=== PATIENT | female | born 1990 | race African-American/Black ===

== ENCOUNTER 2018-05-08 16:11 | Emergency (ER) | payer MEDICAID ==
[~2018-05-08] VITALS: Ht 162.6 cm; Wt 106.0 kg
[2018-05-08 18:20] LABS: CLARITY URINE CLEAR (CLEAR); COLOR URINE YELLOW (YELLOW); KETONES URINE NEGATIVE (NEGATIVE); LEUKOCYTE ESTERASE URINE NEGATIVE (NEGATIVE); NITRITE URINE NEGATIVE (NEGATIVE); OCCULT BLOOD URINE NEGATIVE (NEGATIVE); PROTEIN URINE NEGATIVE (NEGATIVE); SPECIFIC GRAVITY URINE 1.014 (1.005-1.030)
[2018-05-08 20:08] LABS: BASOPHILS % 0.7 % (0.0-2.0); EOSINOPHILS % 1.3 % (0.0-5.0); HEMOGLOBIN. 12.9 g/dL (12.0-16.0); LYMPHOCYTES % 38.8 % (20.0-50.0); MEAN CORPUSCULAR HEMOGLOBIN 28.4 pg (28.0-32.0); MEAN CORPUSCULAR VOLUME 83.6 fL (81.0-99.0); MEAN PLATELET VOLUME 9.2 fl (7.4-10.4); MONOCYTES % 5.6 % (2.0-8.0); NEUTROPHILS % 53.6 % (40.0-76.0); PLATELET 275 x1000/uL (130-400); RED BLOOD CELL COUNT 4.55 mill/uL (4.2-5.4); RED CELL DISTRIBUTION WIDTH 14.8 % (11.6-14.6)
[2018-05-08 20:13] LABS: CHLORIDE 103 mEq/L (98-107)
[2018-05-08 22:05] VITALS: BP 119/73
== END 2018-05-08 22:20 | disposition home or self-care (01) ==
LOC: ER 16:11
DX: O26.891 Other specified pregnancy related conditions, first trimester (principal); R10.13 Epigastric pain; F17.200 Nicotine dependence, unspecified, uncomplicated; Z3A.01 Less than 8 weeks gestation of pregnancy; Z91.011 Allergy to milk products
CPT/HCPCS: 36415; 76801; 80053; 81003; 81025; 83690; 85025; 99285

== ENCOUNTER 2018-05-12 14:01 | Emergency (ER) | payer MEDICAID ==
[~2018-05-12] VITALS: Ht 162.6 cm; Wt 100.0 kg
[2018-05-12 15:17] LABS: BASOPHILS % 1.5 % (0.0-2.0); EOSINOPHILS % 1.1 % (0.0-5.0); HEMATOCRIT. 37.9 % (36.0-48.0); HEMOGLOBIN. 12.9 g/dL (12.0-16.0); LYMPHOCYTES % 39.9 % (20.0-50.0); MEAN CORPUSCULAR HEMOGLOBIN 28.2 pg (28.0-32.0); MEAN CORPUSCULAR VOLUME 83.3 fL (81.0-99.0); NEUTROPHILS % 52.5 % (40.0-76.0); PLATELET 251 x1000/uL (130-400); RED BLOOD CELL COUNT 4.55 mill/uL (4.2-5.4); RED CELL DISTRIBUTION WIDTH 14.7 % (11.6-14.6)
[2018-05-12 15:24] LABS: CHLORIDE 104 mEq/L (98-107)
[2018-05-12 15:49] LABS: B-HCG QUANTITATIVE 9294 mIU/mL (<3)
[2018-05-12 16:44] LABS: CLARITY URINE CLEAR (CLEAR); COLOR URINE DARK YELLOW (YELLOW); KETONES URINE NEGATIVE (NEGATIVE); LEUKOCYTE ESTERASE URINE 1+ (NEGATIVE); NITRITE URINE NEGATIVE (NEGATIVE); OCCULT BLOOD URINE 2+ (NEGATIVE); PH URINE 5.5 (4.5-8.0); PROTEIN URINE NEGATIVE (NEGATIVE); SPECIFIC GRAVITY URINE 1.027 (1.005-1.030)
[2018-05-12 18:53] VITALS: BP 115/70
== END 2018-05-12 19:08 | disposition home or self-care (01) ==
LOC: ER 14:01 → CANBEDREQ 14:51 → ER 19:08
DX: O20.0 Threatened abortion (principal); O23.11 Infections of bladder in pregnancy, first trimester; Z3A.01 Less than 8 weeks gestation of pregnancy; Z87.891 Personal history of nicotine dependence
CPT/HCPCS: 36415; 76801; 80053; 81003; 81025; 84702; 85025; 86850; 86900; 99285

== ENCOUNTER 2018-05-27 14:43 | Emergency (ER) | payer MEDICAID ==
[~2018-05-27] VITALS: Ht 162.6 cm; Wt 113.0 kg
[2018-05-27 17:06] VITALS: BP 140/79
== END 2018-05-27 18:26 | disposition left against medical advice (07) ==
LOC: ER 16:11
DX: Z53.21 Procedure and treatment not carried out due to patient leaving prior to being seen by health care provider (principal)
CPT/HCPCS: Z7610 ×2

== ENCOUNTER 2022-10-21 14:08 | Emergency (ER) | payer MEDICAID ==
[~2022-10-21] VITALS: Ht 162.6 cm; Wt 149.0 kg
[2022-10-21 14:39] VITALS: BP 191/80
[2022-10-21 18:16] LABS: BASOPHILS % 0.7 % (0.0-2.0); EOSINOPHILS % 1.3 % (0.0-5.0); HEMATOCRIT. 41.8 % (36.0-48.0); LYMPHOCYTES % 38.5 % (20.0-50.0); MEAN CORPUSCULAR HEMOGLOBIN 28.5 pg (28.0-32.0); MEAN CORPUSCULAR VOLUME 84.7 fL (81.0-99.0); MEAN PLATELET VOLUME 8.9 fl (7.4-10.4); NEUTROPHILS % 53.5 % (40.0-76.0); PLATELET 277 x1000/uL (130-400); RED BLOOD CELL COUNT 4.93 mill/uL (4.2-5.4); RED CELL DISTRIBUTION WIDTH 14.2 % (11.6-14.6)
[2022-10-21 18:27] LABS: INR 1.1; PROTHROMBIN TIME 11.8 sec (9.6-11.0)
[2022-10-21 18:28] LABS: CHLORIDE 104 mEq/L (98-107)
[2022-10-21 18:52] LABS: B-HCG QUANTITATIVE 53795 mIU/mL (<3)
[2022-10-21 20:26] LABS: CLARITY URINE CLOUDY (CLEAR); COLOR URINE DARK YELLOW (YELLOW); KETONES URINE TRACE (NEGATIVE); LEUKOCYTE ESTERASE URINE TRACE (NEGATIVE); NITRITE URINE NEGATIVE (NEGATIVE); OCCULT BLOOD URINE 3+ (NEGATIVE); PROTEIN URINE 1+ (NEGATIVE); SPECIFIC GRAVITY URINE 1.037 (1.005-1.030)
[2022-10-21] MEDS ORDERED: CEPH500C2 MT (21:07)
== END 2022-10-21 21:23 | disposition home or self-care (01) ==
LOC: ER 14:08
DX: O26.891 Other specified pregnancy related conditions, first trimester (principal); O20.0 Threatened abortion; O23.41 Unspecified infection of urinary tract in pregnancy, first trimester; N39.0 Urinary tract infection, site not specified; Z3A.10 10 weeks gestation of pregnancy
CPT/HCPCS: 36415; 76801; 80053; 81003; 81025; 84702; 85025; 86850; 86900; 99284

== ENCOUNTER 2023-05-12 16:10 | Inpatient (IN) | payer MEDICAID, OTHER ==
[~2023-05-12] VITALS: Ht 162.6 cm; Wt 142.4 kg
[~2023-05-12 16:10] MED LIST: CEPH500C2 MT
[2023-05-12] MEDS ORDERED: OXYTOCIN 30 UNITS/500ML NS PMX 500 ML IV SCH ×2 (19:15)
[2023-05-12] MEDS ORDERED: METHYLERGONOVINE MALEATE 0.2 MG/ML IM PRN (19:15)
[2023-05-12] MEDS ORDERED: CARBOPROST TROMETHAMINE 250 MCG/ML AMPUL IM PRN (19:15)
[2023-05-12] MEDS ORDERED: RHO(D) IMMUNE GLOBULIN 300 MCG/SYR IM NR (19:15)
[2023-05-12] MEDS ORDERED: DEXT 5%/LACTATED RINGERS 1,000 ML IV SCH (19:15)
[2023-05-12] MEDS ORDERED: LIDOCAINE HCL 1% 20ML VIAL (Pyxis) INJ INFIL SCH ×2 (19:15)
[2023-05-12] MEDS ORDERED: NALOXONE HCL 0.4 MG/ML 1ML VIAL IM PRN ×2 (19:15)
[2023-05-12] MEDS ORDERED: PV W1TAB21 PO (21:17)
[2023-05-12 22:00] LABS: BASOPHILS % 0.6 % (0.0-2.0); EOSINOPHILS % 0.9 % (0.0-5.0); HEMATOCRIT. 34.7 % (36.0-48.0); HEMOGLOBIN. 11.9 g/dL (12.0-16.0); LYMPHOCYTES % 32.6 % (20.0-50.0); MEAN CORPUSCULAR HEMOGLOBIN 28.5 pg (28.0-32.0); MEAN CORPUSCULAR VOLUME 83.4 fL (81.0-99.0); MEAN PLATELET VOLUME 9.8 fl (7.4-10.4); MONOCYTES % 6.5 % (2.0-8.0); NEUTROPHILS % 59.4 % (40.0-76.0); PLATELET 231 x1000/uL (130-400); RED BLOOD CELL COUNT 4.16 mill/uL (4.2-5.4); RED CELL DISTRIBUTION WIDTH 14.5 % (11.6-14.6)
[2023-05-12] MEDS: LACTATED RINGERS 1,000 ML IV SCH (22:00)
[2023-05-12 22:08] LABS: PARTIAL THROMBOPLASTIN TIME 26.3 sec (23.4-31.0); PROTHROMBIN TIME 10.9 sec (9.6-11.0)
[2023-05-12 22:47] LABS: *AMPHETAMINES SCREEN URINE NEGATIVE (NEGATIVE); *BARBITURATES SCREEN URINE NEGATIVE (NEGATIVE); *BENZODIAZEPINES SCREEN URINE NEGATIVE (NEGATIVE); *COCAINE SCREEN URINE NEGATIVE (NEGATIVE); CANNABINOID URINE SCREEN NEGATIVE (NEGATIVE); METHADONE URINE SCREEN NEGATIVE (NEGATIVE); OPIATES URINE SCREEN NEGATIVE (NEGATIVE); PHENCYCLIDINE URINE SCREEN NEGATIVE (NEGATIVE)
[2023-05-12 23:11] LABS: HEPATITIS B SURFACE ANTIGEN NEGATIVE
[2023-05-13 04:06] LABS: CLARITY URINE CLEAR (CLEAR); COLOR URINE YELLOW (YELLOW); KETONES URINE NEGATIVE (NEGATIVE); LEUKOCYTE ESTERASE URINE 2+ (NEGATIVE); NITRITE URINE NEGATIVE (NEGATIVE); OCCULT BLOOD URINE 3+ (NEGATIVE); PROTEIN URINE TRACE (NEGATIVE); SPECIFIC GRAVITY URINE 1.021 (1.005-1.030)
[2023-05-13] MEDS: LACTATED RINGERS 1,000 ML IV SCH (12:59)
[2023-05-13] MEDS ORDERED: LACTATED RINGERS 1,000 ML IV SCH (13:15)
[2023-05-13] MEDS ORDERED: ROPIVACAINE HCL/PF EPIDURAL 200 ML EPI NR (17:00)
[2023-05-13] MEDS ORDERED: MEPERIDINE HCL/PF 50MG/ML CPJ IM PRN (20:30)
[2023-05-13] MEDS ORDERED: MEPERIDINE HCL/PF 25MG/ML CPJ IV NR (23:15)
[2023-05-13 23:47] LABS: BASOPHILS % 0.4 % (0.0-2.0); CHLORIDE 109 mEq/L (98-107); EOSINOPHILS % 0.8 % (0.0-5.0); HEMATOCRIT. 37.9 % (36.0-48.0); HEMOGLOBIN. 12.6 g/dL (12.0-16.0); LYMPHOCYTES % 25.8 % (20.0-50.0); MEAN CORPUSCULAR HEMOGLOBIN 28.1 pg (28.0-32.0); MEAN CORPUSCULAR VOLUME 84.4 fL (81.0-99.0); MEAN PLATELET VOLUME 9.5 fl (7.4-10.4); MONOCYTES % 6.7 % (2.0-8.0); NEUTROPHILS % 66.3 % (40.0-76.0); PLATELET 220 x1000/uL (130-400); RED BLOOD CELL COUNT 4.49 mill/uL (4.2-5.4); RED CELL DISTRIBUTION WIDTH 14.4 % (11.6-14.6)
[2023-05-13 23:55] LABS: PARTIAL THROMBOPLASTIN TIME 26.7 sec (23.4-31.0)
[2023-05-14] MEDS ORDERED: BENZOCAINE/LANOLIN/ALOE VERA SPRAY TOP PRN (00:15)
[2023-05-14] MEDS ORDERED: HEMORRHOIDAL SUPP PR PRN (00:15)
[2023-05-14] MEDS ORDERED: DIPHENHYDRAMINE 25MG CAPSULE PO PRN (00:15)
[2023-05-14] MEDS ORDERED: GLYCERIN/WITCH HAZEL LEAF MEDICATED PAD TOP PRN (00:15)
[2023-05-14] MEDS ORDERED: IBUPROFEN 400MG TABLET PO PRN (00:15)
[2023-05-14] MEDS ORDERED: IBUPROFEN 800MG TABLET PO PRN (00:15)
[2023-05-14] MEDS ORDERED: BISACODYL 10MG SUPP PR PRN (00:15)
[2023-05-14] MEDS ORDERED: OXYTOCIN 30 UNITS/500ML NS PMX 500 ML IV SCH (00:15)
[2023-05-14] MEDS ORDERED: METHYLERGONOVINE MALEATE 0.2 MG/ML IM PRN (00:15)
[2023-05-14] MEDS ORDERED: LANOLIN OINT 7GM TUBE TOP PRN (00:15)
[2023-05-14] MEDS ORDERED: LABETALOL HCL 100MG TABLET PO NR (02:00)
[2023-05-14 03:00] VITALS: BP 152/55; PULSE 70; RESP 18; TEMP 98.4; O2SAT 98
[2023-05-14 03:30] VITALS: BP 153/50; PULSE 72; RESP 18
[2023-05-14 05:30] VITALS: BP 123/45; PULSE 75; RESP 18
[2023-05-14] MEDS: MAGNESIUM/ALUMINUM HYDROXIDE/SIMETHICONE 30ML UDC PO SCH ×4 (07:30→21:00)
[2023-05-14] MEDS: SIMETHICONE 80MG TABLET CHEW PO SCH ×4 (08:00→21:00)
[2023-05-14] MEDS: PRENATAL VIT/FE FUMARATE/FA TABLET PO SCH (09:00)
[2023-05-14] MEDS: LABETALOL HCL 100MG TABLET PO SCH ×2 (09:00→21:00)
[2023-05-14 12:00] VITALS: BP 127/62; PULSE 74; RESP 18; TEMP 98
[2023-05-14] MEDS: OXYCODONE HCL/ACETAMINOPHEN 5/325MG TABLET PO PRN ×2 (15:50→21:11)
[2023-05-14 20:35] VITALS: BP 111/56; PULSE 79; RESP 18; TEMP 98.9; O2SAT 97
[2023-05-14] MEDS ORDERED: DOCUSATE SODIUM 100MG CAPSULE PO SCH (21:00)
[2023-05-15 07:20] LABS: BASOPHILS % 0.9 % (0.0-2.0); EOSINOPHILS % 1.2 % (0.0-5.0); HEMOGLOBIN. 10.9 g/dL (12.0-16.0); LYMPHOCYTES % 40.3 % (20.0-50.0); MEAN CORPUSCULAR HEMOGLOBIN 28.4 pg (28.0-32.0); MEAN CORPUSCULAR VOLUME 83.8 fL (81.0-99.0); MEAN PLATELET VOLUME 9.7 fl (7.4-10.4); NEUTROPHILS % 52.6 % (40.0-76.0); PLATELET 185 x1000/uL (130-400); RED BLOOD CELL COUNT 3.83 mill/uL (4.2-5.4); RED CELL DISTRIBUTION WIDTH 14.5 % (11.6-14.6)
[2023-05-15] MEDS ORDERED: FERROUS SULFATE 325MG TABLET PO SCH (07:30)
[2023-05-15] MEDS: MAGNESIUM/ALUMINUM HYDROXIDE/SIMETHICONE 30ML UDC PO SCH (07:30)
[2023-05-15] MEDS: SIMETHICONE 80MG TABLET CHEW PO SCH (08:00)
[2023-05-15 08:37] VITALS: BP 111/56; RESP 18
[2023-05-15] MEDS: OXYCODONE HCL/ACETAMINOPHEN 5/325MG TABLET PO PRN (08:37)
[2023-05-15 09:00] VITALS: PULSE 79
[2023-05-15] MEDS: PRENATAL VIT/FE FUMARATE/FA TABLET PO SCH (09:00)
[2023-05-15] MEDS: LABETALOL HCL 100MG TABLET PO SCH (09:00)
== END 2023-05-15 14:00 | disposition home or self-care (01) | DRG 560 ==
LOC: OBSVTOIN 16:10 → 8 EST LDRP 16:10 → 8EST 05-14 02:26
PROVIDERS: ADMIT Obstetrics & Gynecology; ATTEND Obstetrics & Gynecology
PROC: 10E0XZZ Delivery of Products of Conception, External Approach (ICD-10-PCS; principal; 2023-05-13)
DX: O69.81X0 Labor and delivery complicated by cord around neck, without compression, not applicable or unspecified (principal); Z37.0 Single live birth; O99.02 Anemia complicating childbirth; O99.214 Obesity complicating childbirth; Z88.0 Allergy status to penicillin; Z3A.40 40 weeks gestation of pregnancy; Z20.822 Contact with and (suspected) exposure to COVID-19
CPT/HCPCS: 36415; 76805; 76818; 80053; 80305; 81003; 84550; 85025; 85384; 86592; 86703; 86762; 86850; 86900; 87340; 87426; 99281; G0378; J2175; J2795; J7120; A4315; J2590

== ENCOUNTER 2023-07-29 17:12 | Emergency (ER) | payer MEDICAID, OTHER ==
[~2023-07-29] VITALS: Ht 160 cm; Wt 141.4 kg
[~2023-07-29 17:12] MED LIST changes: +PV W1TAB21 PO
[2023-07-29 17:33] VITALS: O2SAT 100
[2023-07-29 18:29] LABS: BASOPHILS % 0.4 % (0.0-2.0); EOSINOPHILS % 0.7 % (0.0-5.0); HEMOGLOBIN. 11.9 g/dL (12.0-16.0); LYMPHOCYTES % 32.1 % (20.0-50.0); MEAN CORPUSCULAR HEMOGLOBIN 27.8 pg (28.0-32.0); MEAN CORPUSCULAR VOLUME 84.2 fL (81.0-99.0); MEAN PLATELET VOLUME 9.2 fl (7.4-10.4); MONOCYTES % 4.5 % (2.0-8.0); NEUTROPHILS % 62.3 % (40.0-76.0); PLATELET 266 x1000/uL (130-400); RED BLOOD CELL COUNT 4.28 mill/uL (4.2-5.4); RED CELL DISTRIBUTION WIDTH 14.1 % (11.6-14.6); WHITE BLOOD COUNT 7.5 x1000/uL (4.5-11.0)
[2023-07-29 18:38] LABS: CHLORIDE 107 mEq/L (98-107); INDEX HEMOLYSI 1 (1-3); INDEX ICTERIC 1 (1-4); INDEX LIPEMIC 1 (1-3); POTASSIUM 3.5 mEq/L (3.5-5.1); SODIUM 137 mEq/L (136-145)
[2023-07-29 18:51] LABS: ALANINE AMINOTRANSFERASE 16 IU/L (13-61); ASPARTATE AMINOTRANSFERASE 19 IU/L (15-37); BILIRUBIN TOTAL 0.4 mg/dL (0.1-1.0); CALCIUM 8.9 mg/dL (8.5-10.1); CARBON DIOXIDE 24 mEq/L (21-32); CREATININE 0.6 mg/dL (0.6-1.3); GLUCOSE 120 mg/dL (70-105); NT PRO B-TYPE NATRIURETIC PEP 12 pg/mL (5-125); PROTEIN TOTAL 8.5 g/dL (6.0-8.3); UREA NITROGEN BLOOD 5 mg/dL (7-21)
[2023-07-29 20:10] VITALS: BP 163/77; PULSE 80; RESP 16; TEMP 98.9
== END 2023-07-29 20:18 | disposition home or self-care (01) ==
LOC: ER 17:12
DX: R07.89 Other chest pain (principal)
CPT/HCPCS: 36415; 71045; 80053; 83880; 85025; 85379; 93005; 99285

== ENCOUNTER 2023-07-31 13:22 | Emergency (ER) | payer MEDICAID, OTHER ==
[~2023-07-31] VITALS: Ht 172.7 cm; Wt 113.0 kg
[2023-07-31 13:33] VITALS: TEMP 98.4; O2SAT 100
[2023-07-31 19:09] LABS: BASOPHILS % 1.1 % (0.0-2.0); EOSINOPHILS % 2.7 % (0.0-5.0); HEMATOCRIT. 36.5 % (36.0-48.0); HEMOGLOBIN. 12.2 g/dL (12.0-16.0); LYMPHOCYTES % 40.1 % (20.0-50.0); MEAN CORPUSCULAR HEMOGLOBIN 27.8 pg (28.0-32.0); MEAN CORPUSCULAR HGB CONC 33.5 g/dL (31.0-37.0); MEAN CORPUSCULAR VOLUME 82.9 fL (81.0-99.0); MEAN PLATELET VOLUME 8.4 fl (7.4-10.4); MONOCYTES % 5.9 % (2.0-8.0); NEUTROPHILS % 50.2 % (40.0-76.0); PLATELET 355 x1000/uL (130-400); RED CELL DISTRIBUTION WIDTH 13.7 % (11.6-14.6); WHITE BLOOD COUNT 6.7 x1000/uL (4.5-11.0)
[2023-07-31 19:18] LABS: CHLORIDE 109 mEq/L (98-107); INDEX HEMOLYSI 1 (1-3); INDEX ICTERIC 1 (1-4); INDEX LIPEMIC 1 (1-3); POTASSIUM 3.9 mEq/L (3.5-5.1); SODIUM 138 mEq/L (136-145)
[2023-07-31 19:25] LABS: ALANINE AMINOTRANSFERASE 24 IU/L (13-61); ASPARTATE AMINOTRANSFERASE 22 IU/L (15-37); BILIRUBIN TOTAL 0.2 mg/dL (0.1-1.0); CALCIUM 8.7 mg/dL (8.5-10.1); CARBON DIOXIDE 26 mEq/L (21-32); CREATININE 0.6 mg/dL (0.6-1.3); GLUCOSE 95 mg/dL (70-105); PROTEIN TOTAL 8.5 g/dL (6.0-8.3); UREA NITROGEN BLOOD 6 mg/dL (7-21)
[2023-07-31] MEDS ORDERED: ENOXAPARIN 120MG/0.8ML SYR SUBCUT ONE (20:30)
[2023-07-31] MEDS ORDERED: KETOROLAC 15MG/ML VIAL IV ONE (21:00)
[2023-07-31 21:04] LABS: INR 1.1; PROTHROMBIN TIME 11.4 sec (9.6-11.0)
[2023-07-31 21:12] LABS: TROPONIN I HIGH SENSITIVITY 4 ng/L (<54)
[2023-07-31 21:19] VITALS: BP 175/107; PULSE 86; RESP 20
[2023-07-31] MEDS ORDERED: RIVA1TAB PO (21:23)
[2023-07-31] MEDS ORDERED: IOHEXOL-350 100 ML BOTTLE ONE (21:41)
== END 2023-07-31 21:46 | disposition left against medical advice (07) ==
LOC: ER 13:22
DX: R07.89 Other chest pain (principal)
CPT/HCPCS: 99285; 96374; 71275; 80053; 81025; 85025; 85610; 84484; 36415; 96372; Q9967; J1650; J1885

== ENCOUNTER 2024-03-29 17:00 | Emergency (ER) | payer MEDICAID ==
[~2024-03-29] VITALS: Ht 162.6 cm; Wt 150.0 kg
[~2024-03-29 17:00] MED LIST changes: +RIVA1TAB PO
[2024-03-29 17:13] VITALS: BP 140/85; PULSE 93; RESP 18; TEMP 98.6; O2SAT 100
[2024-03-29 17:49] LABS: BASOPHILS % 0.6 % (0.0-2.0); EOSINOPHILS % 0.8 % (0.0-5.0); HEMATOCRIT. 38.5 % (36.0-48.0); LYMPHOCYTES % 22.9 % (20.0-50.0); MEAN CORPUSCULAR HEMOGLOBIN 27.9 pg (28.0-32.0); MEAN CORPUSCULAR HGB CONC 33.8 g/dL (31.0-37.0); MEAN CORPUSCULAR VOLUME 82.4 fL (81.0-99.0); MEAN PLATELET VOLUME 8.8 fl (7.4-10.4); MONOCYTES % 6.1 % (2.0-8.0); NEUTROPHILS % 69.6 % (40.0-76.0); PLATELET 309 x1000/uL (130-400); RED BLOOD CELL COUNT 4.67 mill/uL (4.2-5.4); RED CELL DISTRIBUTION WIDTH 14.5 % (11.6-14.6); WHITE BLOOD COUNT 7.5 x1000/uL (4.5-11.0)
[2024-03-29 17:54] LABS: CHLORIDE 103 mEq/L (98-107); POTASSIUM 3.8 mEq/L (3.5-5.1); SODIUM 135 mEq/L (136-145)
[2024-03-29 17:55] LABS: CALCIUM 9.8 mg/dL (8.7-10.4); CARBON DIOXIDE 24 mEq/L (21-32)
[2024-03-29 18:00] LABS: CREATININE 0.7 mg/dL (0.6-1.0); GLUCOSE 94 mg/dL (70-105); UREA NITROGEN BLOOD 7 mg/dL (9-23)
[2024-03-29 19:07] LABS: HCG SCREEN NEGATIVE
[2024-03-29 19:22] LABS: INR 1.1
[2024-03-29 20:03] LABS: TROPONIN I HIGH SENSITIVITY < 4 ng/L (3.0-34)
[2024-03-29] MEDS: LEVOFLOXACIN 750MG PREMIX 150 ML IV ONE (20:15)
[2024-03-29] MEDS ORDERED: ENOXAPARIN 150MG/ML SYR SUBCUT ONE (20:15)
[2024-03-29] MEDS ORDERED: ASPIRIN 325MG EC TABLET PO ONE (20:15)
[2024-03-29 22:19] LABS: TROPONIN I HIGH SENSITIVITY < 4 ng/L (3.0-34)
[2024-03-29] MEDS ORDERED: LEVO750T68 MT (22:21)
[2024-03-29] MEDS: ENOXAPARIN 150MG/ML SYR SUBCUT NR (22:23)
[2024-03-29] MEDS: ASPIRIN 325MG EC TABLET PO NR (22:40)
[2024-03-29] MEDS ORDERED: IOHEXOL-350 100 ML BOTTLE ONE (23:16)
== END 2024-03-29 22:55 | disposition left against medical advice (07) ==
LOC: ER 17:00 → CANBEDREQ 22:30 → ER 22:55
DX: R07.89 Other chest pain (principal); R91.8 Other nonspecific abnormal finding of lung field; Z20.822 Contact with and (suspected) exposure to COVID-19
CPT/HCPCS: 80048; 84703; 83880; 83605; 85025; 85379; 85610; 85730; 87040; 84484; 36415; 93971; 71045; 71275; 93970; 93005; 99285; 87426; Q9967; Z7610 ×2; J1956